=== PATIENT | male | born 1985 | race Caucasian/White ===

== ENCOUNTER 2017-02-25 09:17 | Observation (INO) | payer OTHER ==
[~2017-02-25] VITALS: Ht 198.1 cm; Wt 115.0 kg
[~2017-02-25 09:17] MED LIST: NEOSTIGMINE 3 MG/3 ML SYR IV ONE; PROPOFOL 200 MG/20 ML AMP IV ONE
[2017-02-25 09:25] VITALS: TEMP 100.2; TEMP 98.2
--- NOTE | 2017-02-25 09:26 | PD ---
HPI . mid/right upper abdominal pain since 4 am Chief Complaint: Abdominal Pain Time Seen by Provider: 09:26 Travel History International Travel<30 days: No Contact w/Intl Traveler<30days: No Traveled to known affect area: No History of Present Illness HPI 31-year-old male with history of anxiety and hepatitis B here with complaints of mid to right upper abdominal pain since 4 AM. Patient says the pain onset out of nowhere. He does admit to some nausea and vomiting, but tells me that he gets these same symptoms when he gets anxious. He did have a court hearing this morning for some misdemeanor, which he is now having to serve probation for. He does report having hepatitis B. He denies any IV drug use, but admits to marijuana usage a few weeks ago. He did have some fast food yesterday along with 2 beers. He reports having about 5 episodes of vomiting since 4 am this morning. The pain is rated as 9/10 and located in the right upper and mid abdomen. He tells me that it's intense pain. He denies any bowel or bladder issues. He was brought in by [facility] and given IV fluids and Zofran. Last ate some donuts at 430 am prior to that last ate a meal yesterday evening. PFSH Past Medical History Bipolar Disorder: Yes Schizophrenia: Yes Social History Alcohol Use: Yes Tobacco Use: Yes Substance Use: Yes Allergies-Medications (Allergen,Severity, Reaction): Coded Allergies: No Known Allergies (Unverified , 02/25/17) Review of Systems General / Constitutional: No: Fever Eyes: No: Visual changes HENT: No: Headaches Cardiovascular: No: Chest Pain or Discomfort Respiratory: No: Shortness of Breath Gastrointestinal: Positive: Nausea, Vomiting, Abdominal Pain Genitourinary: No: Dysuria Musculoskeletal: No: Pain Skin: No Rash Neurologic: No: Weakness Psychiatric: No: Depression Endocrine: No: Polydipsia Hematologic/Lymphatic: No: Easy Bruising Physical Exam Narrative GENERAL: AAO x 3, mild distress, very anxious Well-nourished, well-developed patient. SKIN: Warm and dry. No visible rashes or bruising. multiple tattoos on abdomen too numerous to count, HEAD: Normocephalic and atraumatic. EYES: No scleral icterus. No injection or drainage. EOM intact, PERRLA, ENT: No nasal drainage noted. Mucous membranes pink. Airway patent. moist mucous membranes NECK: Supple, trachea midline. No JVD. CARDIOVASCULAR: Regular rate and rhythm without murmurs, gallops, or rubs. RESPIRATORY: Breath sounds equal bilaterally. No accessory muscle use. No rhonchi or rales. GASTROINTESTINAL: Abdomen soft, tenderness to RUQ and mid abdomen. + weiner's sign, and McBurney point tenderness + EXTREMITIES: No cyanosis or edema. BACK: No obvious deformity. No CVA tenderness. NEURO: CN II-12 intact, PSYCH: AAO x 3, very anxious Data Data Last Documented VS Vital Signs Date Time Temp Pulse Resp B/P Pulse Ox O2 Delivery O2 Flow Rate FiO2 02/25/17 09:35 100.2 95 14 163/83 98 Room Air Orders Complete Blood Count With Diff (02/25/17 09:26) Comprehensive Metabolic Panel (02/25/17 09:26) Lipase (02/25/17 09:26) Ct Abd/Pel W Iv Contrast(Rout) (02/25/17 09:26) Iv Access Insert/Monitor (02/25/17 09:26) Ecg Monitoring (02/25/17 09:26) Oximetry (02/25/17 09:26) Sodium Chloride 0.9% Flush (Ns Flush) (02/25/17 09:30) Drug Screen, Random Urine (02/25/17 09:28) Urinalysis - C+S If Indicated (02/25/17 09:28) Ketorolac Inj (Toradol Inj) (02/25/17 10:00) Pantoprazole Inj (Protonix Inj) (02/25/17 10:00) Lactic Acid Sepsis Protocol (02/25/17 09:49) Blood Culture (02/25/17 09:49) Ondansetron Inj (Zofran Inj) (02/25/17 10:00) Morphine Inj (Morphine Inj) (02/25/17 10:00) C-Reactive Protein (Crp) (02/25/17 09:40) Sodium Chlor 0.9% 1000 Ml Inj (Ns 1000 M (02/25/17 10:15) Iohexol 350 Inj (Omnipaque 350 Inj) (02/25/17 11:04) Diet Npo Except Meds (02/25/17 Lunch) Prochlorperazine Inj (Compazine Inj) (02/25/17 11:30) Piperacil-Tazo 3.375 Gm Premix (Zosyn 3. (02/25/17 11:45) Sodium Chlor 0.9% 1000 Ml Inj (Ns 1000 M (02/25/17 11:45) Admit Order (Ed Use Only) (02/25/17 11:44) Labs Laboratory Tests Test 02/25/17 02/25/17 02/25/17 09:40 10:00 11:00 White Blood Count 10.7 TH/MM3 Red Blood Count 4.00 MIL/MM3 Hemoglobin 11.8 GM/DL Hematocrit 35.2 % Mean Corpuscular Volume 88.0 FL Mean Corpuscular Hemoglobin 29.6 PG Mean Corpuscular Hemoglobin 33.6 % Concent Red Cell Distribution Width 13.1 % Platelet Count 151 TH/MM3 Mean Platelet Volume 8.8 FL Neutrophils (%) (Auto) 85.5 % Lymphocytes (%) (Auto) 7.4 % Monocytes (%) (Auto) 6.9 % Eosinophils (%) (Auto) 0.0 % Basophils (%) (Auto) 0.2 % Neutrophils # (Auto) 9.1 TH/MM3 Lymphocytes # (Auto) 0.8 TH/MM3 Monocytes # (Auto) 0.7 TH/MM3 Eosinophils # (Auto) 0.0 TH/MM3 Basophils # (Auto) 0.0 TH/MM3 CBC Comment DIFF FINAL Differential Comment Sodium Level 144 MEQ/L Potassium Level 3.3 MEQ/L Chloride Level 111 MEQ/L Carbon Dioxide Level 22.6 MEQ/L Anion Gap 10 MEQ/L Blood Urea Nitrogen 11 MG/DL Creatinine 1.04 MG/DL Estimat Glomerular Filtration 84 ML/MIN Rate Random Glucose 84 MG/DL Calcium Level 7.9 MG/DL Total Bilirubin 0.7 MG/DL Aspartate Amino Transf 19 U/L (AST/SGOT) Alanine Aminotransferase 49 U/L (ALT/SGPT) Alkaline Phosphatase 103 U/L C-Reactive Protein 0.49 MG/DL Total Protein 6.6 GM/DL Albumin 3.7 GM/DL Lipase 87 U/L Lactic Acid Level 1.4 mmol/L Urine Color YELLOW Urine Turbidity CLEAR Urine pH 6.0 Urine Specific [place] 1.036 Urine Protein TRACE mg/dL Urine Glucose (UA) NEG mg/dL Urine Ketones 150 mg/dL Urine Occult Blood NEG Urine Nitrite NEG Urine Bilirubin NEG Urine Urobilinogen LESS THAN 2.0 MG/DL Urine Leukocyte Esterase NEG Urine WBC 1 /hpf Urine Squamous Epithelial <1 /hpf Cells Urine Hyaline Casts 1 /lpf Urine Mucus FEW /lpf Microscopic Urinalysis Comment CULT NOT INDICATED MDM Medical Decision Making Medical Screen Exam Complete: Yes Emergency Medical Condition: Yes Medical Record Reviewed: Yes Differential Diagnosis appendicitis, gastroenteritis, cholecystitis, pancreatitis, Narrative Course 31 yr old male here with acute abdominal pain. He appears to have possibility of appendicitis vs. cholecystitis vs. gastroenteritis vs other IV access obtained, labs and CT scan ordered. zofran and morphine given IV fluids also provided. Last Impressions Abdomen/Pelvis CT 02/25/17925 Signed Impressions: Service Date/Time: Tuesday, February 25, 2017 10:41 - CONCLUSION: 1. The findings are diagnostic of acute appendicitis. 2. Nonacute findings include mild splenomegaly and small hiatal hernia. Kyaw Cobb MD Laboratory Tests Test 02/25/17 02/25/17 09:40 11:00 Red Blood Count 4.00 MIL/MM3 Hemoglobin 11.8 GM/DL Hematocrit 35.2 % Neutrophils (%) (Auto) 85.5 % Lymphocytes (%) (Auto) 7.4 % Neutrophils # (Auto) 9.1 TH/MM3 Lymphocytes # (Auto) 0.8 TH/MM3 Potassium Level 3.3 MEQ/L Chloride Level 111 MEQ/L Estimat Glomerular Filtration 84 ML/MIN Rate Calcium Level 7.9 MG/DL C-Reactive Protein 0.49 MG/DL Urine Specific [place] 1.036 Urine Ketones 150 mg/dL Urine Mucus FEW /lpf 1045: I went to check on patient and he is in CT. 1115: discussed findings with patient; he has acute appendicitis and will need surgery. 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 Lopez: discussed case, patient to get scheduled for OR; surgical consents provided along with NPO diet. 1130: compazine provided for nausea/vomiting and zosyn All workup and results discussed with my attending Dr. Whitaker. I have also discussed everything with the patient. He is aware that this is surgical. Patient was admitted under Dr. Lopez's care, who will determine his disposition. Diagnosis Primary Impression: Acute appendicitis Qualified Code: K35.80 - Acute appendicitis, unspecified acute appendicitis type Condition: Stable Mercedes Parrish Feb 25, 2017 09:26
[2017-02-25] MEDS ORDERED: SODIUM CHLORIDE 0.9% FLUSH 10 ML FLUSH IV FLUSH PRN ×2 (09:30→12:00)
[2017-02-25 09:31] VITALS: RESP 14; O2SAT 99
[2017-02-25 09:35] VITALS: BP 163/83; PULSE 95; RESP 14; TEMP 100.2; O2SAT 98
[2017-02-25 10:00] LABS: AUTOMATED NEUTROPHIL # 9.1 TH/MM3 (1.8-7.7); BASOPHIL % 0.2 % (0.0-2.0); HEMATOCRIT 35.2 % (39.0-51.0); HEMO FLAGS DIFF FINAL; LYMPH % 7.4 % (9.0-44.0); LYMPHOCYTE # 0.8 TH/MM3 (1.0-4.8); MEAN CORPUSCULAR HEMOGLOBIN 29.6 PG (27.0-34.0); MEAN CORPUSCULAR HGB CONC 33.6 % (32.0-36.0); MONO % 6.9 % (0.0-8.0); NEUT % 85.5 % (16.0-70.0); PLATELET COUNT 151 TH/MM3 (150-450); RED CELL DISTRIBUTION WIDTH 13.1 % (11.6-17.2); WHITE BLOOD COUNT 10.7 TH/MM3 (4.0-11.0)
[2017-02-25] MEDS ORDERED: ONDANSETRON HCL 4 MG/2 ML VIAL IV PUSH ONE (10:00)
[2017-02-25] MEDS ORDERED: MORPHINE SULFATE 4 MG/ML INJ IV PUSH ONE (10:00)
[2017-02-25] MEDS ORDERED: PANTOPRAZOLE SODIUM 40 MG VIAL IV PUSH ONE (10:00)
[2017-02-25] MEDS ORDERED: KETOROLAC TROMETHAMINE 30 MG/ML (IVP) VIAL IV PUSH ONE (10:00)
--- NOTE | 2017-02-25 10:12 | PD ---
Physical Exam Date Seen by Provider: Feb 25, 2017 Time Seen by Provider: 10:10 Narrative 31-year-old male came to the emergency room with history of abdominal pain that started at 4:30 AM. Patient says he tried to eat some doughnuts at that time and he vomited. He would have come earlier but he had a court date. He was brought in by EMS. He looks to be in moderate distress. He is seen by my nurse practitioner and I'm supervising her. Patient has a temperature of 100.2. I examined him and he had diminished bowel sounds with tenderness at McBurney's point. Patient drinks alcohol as per his own admission and smokes marijuana. Denies any IV drug abuse. He is currently getting blood test and CT scan. Getting IV fluid bolus and pain medication. My suspicion is really high for acute appendicitis. Awaiting for the CT scan to be done and resulted. I've asked him to stay NPO. Data Data Last Documented VS Vital Signs Date Time Temp Pulse Resp B/P Pulse Ox O2 Delivery O2 Flow Rate FiO2 02/25/17 09:35 100.2 95 14 163/83 98 Room Air Orders Complete Blood Count With Diff (02/25/17 09:26) Comprehensive Metabolic Panel (02/25/17 09:26) Lipase (02/25/17 09:26) Ct Abd/Pel W Iv Contrast(Rout) (02/25/17 09:26) Iv Access Insert/Monitor (02/25/17 09:26) Ecg Monitoring (02/25/17 09:26) Oximetry (02/25/17 09:26) Sodium Chloride 0.9% Flush (Ns Flush) (02/25/17 09:30) Drug Screen, Random Urine (02/25/17 09:28) Urinalysis - C+S If Indicated (02/25/17 09:28) Ketorolac Inj (Toradol Inj) (02/25/17 10:00) Pantoprazole Inj (Protonix Inj) (02/25/17 10:00) Lactic Acid Sepsis Protocol (02/25/17 09:49) Blood Culture (02/25/17 09:49) Ondansetron Inj (Zofran Inj) (02/25/17 10:00) Morphine Inj (Morphine Inj) (02/25/17 10:00) C-Reactive Protein (Crp) (02/25/17 09:40) Sodium Chlor 0.9% 1000 Ml Inj (Ns 1000 M (02/25/17 10:15) Iohexol 350 Inj (Omnipaque 350 Inj) (02/25/17 11:04) Prochlorperazine Inj (Compazine Inj) (02/25/17 11:30) Piperacil-Tazo 3.375 Gm Premix (Zosyn 3. (02/25/17 11:45) Sodium Chlor 0.9% 1000 Ml Inj (Ns 1000 M (02/25/17 11:45) Admit Order (Ed Use Only) (02/25/17 11:44) Labs Laboratory Tests Test 02/25/17 02/25/17 02/25/17 09:40 10:00 11:00 White Blood Count 10.7 TH/MM3 Red Blood Count 4.00 MIL/MM3 Hemoglobin 11.8 GM/DL Hematocrit 35.2 % Mean Corpuscular Volume 88.0 FL Mean Corpuscular Hemoglobin 29.6 PG Mean Corpuscular Hemoglobin 33.6 % Concent Red Cell Distribution Width 13.1 % Platelet Count 151 TH/MM3 Mean Platelet Volume 8.8 FL Neutrophils (%) (Auto) 85.5 % Lymphocytes (%) (Auto) 7.4 % Monocytes (%) (Auto) 6.9 % Eosinophils (%) (Auto) 0.0 % Basophils (%) (Auto) 0.2 % Neutrophils # (Auto) 9.1 TH/MM3 Lymphocytes # (Auto) 0.8 TH/MM3 Monocytes # (Auto) 0.7 TH/MM3 Eosinophils # (Auto) 0.0 TH/MM3 Basophils # (Auto) 0.0 TH/MM3 CBC Comment DIFF FINAL Differential Comment Sodium Level 144 MEQ/L Potassium Level 3.3 MEQ/L Chloride Level 111 MEQ/L Carbon Dioxide Level 22.6 MEQ/L Anion Gap 10 MEQ/L Blood Urea Nitrogen 11 MG/DL Creatinine 1.04 MG/DL Estimat Glomerular Filtration 84 ML/MIN Rate Random Glucose 84 MG/DL Calcium Level 7.9 MG/DL Total Bilirubin 0.7 MG/DL Aspartate Amino Transf 19 U/L (AST/SGOT) Alanine Aminotransferase 49 U/L (ALT/SGPT) Alkaline Phosphatase 103 U/L C-Reactive Protein 0.49 MG/DL Total Protein 6.6 GM/DL Albumin 3.7 GM/DL Lipase 87 U/L Lactic Acid Level 1.4 mmol/L Urine Color YELLOW Urine Turbidity CLEAR Urine pH 6.0 Urine Specific [place] 1.036 Urine Protein TRACE mg/dL Urine Glucose (UA) NEG mg/dL Urine Ketones 150 mg/dL Urine Occult Blood NEG Urine Nitrite NEG Urine Bilirubin NEG Urine Urobilinogen LESS THAN 2.0 MG/DL Urine Leukocyte Esterase NEG Urine WBC 1 /hpf Urine Squamous Epithelial <1 /hpf Cells Urine Hyaline Casts 1 /lpf Urine Mucus FEW /lpf Microscopic Urinalysis Comment CULT NOT INDICATED Urine Opiates Screen NEG Urine Barbiturates Screen NEG Urine Amphetamines Screen NEG Urine Benzodiazepines Screen NEG Urine Cocaine Screen NEG Urine Cannabinoids Screen POS MDM Supervised Visit with [facility]: Yes Scripts Ondansetron (Zofran)4 Mg Tab4 Mg PO Q6HR PRN (NAUSEA OR VOMITING) #10 TAB Ref 0 Prov:Elijah Lopez MD 02/25/17 Hydrocodone-Acetaminophen ([place])5-325 mg Tab1 Tab PO Q6H PRN (PAIN) #28 TAB Ref 0 Prov:Elijah Lopez MD 02/25/17 Condition: Stable Gian Whitaker MD Feb 25, 2017 10:12
[2017-02-25] MEDS ORDERED: SODIUM CHLOR 0.9% 1000 ML INJ 1,000 ML IV ONE ×2 (10:15→11:45)
[2017-02-25 10:16] LABS: ALT (GPT) 49 U/L (12-78); ANION GAP 10 MEQ/L (5-15); AST (GOT) 19 U/L (15-37); BICARBONATE 22.6 MEQ/L (21.0-32.0); BLOOD UREA NITROGEN 11 MG/DL (7-18); CHLORIDE 111 MEQ/L (98-107); GLOMERULAR FILTRATION RATE 84 ML/MIN (>89); POTASSIUM 3.3 MEQ/L (3.5-5.1); SODIUM (NA) 144 MEQ/L (136-145)
[2017-02-25 10:18] LABS: ALKALINE PHOSPHATASE 103 U/L (45-117); TOTAL BILIRUBIN ADULT 0.7 MG/DL (0.2-1.0)
[2017-02-25] MEDS ORDERED: IOHEXOL 350 MG/ML 10 ML VIAL (for RAD DIAG) IV ONE (11:04)
[2017-02-25 11:12] LABS: BLOOD, URINE NEG (NEG); COMMENT (UR) CULT NOT INDICATED; CULTURE IF INDICATED CULT NOT INDICATED; GLUCOSE,URINE NEG (NEG); HYALINE CAST, URINE 1 /lpf (RARE); KETONE, URINE 150 mg/dL (NEG); MUCUS URINE FEW /lpf (OCC); NITRITE,URINE NEG (NEG); SQUAMOUS EPITHELIAL CELL URINE <1 /hpf (0-5); URINE COLOR YELLOW (YELLW/STRAW)
--- NOTE | 2017-02-25 11:12 | RADRPT ---
EXAM DATE/TIME: 02/25/2017 10:41 [facility] COMPARISON: No previous studies available for comparison. INDICATIONS : Diffuse abdominal pain with nausea and vomiting. IV CONTRAST: 95 cc Omnipaque 350 (iohexol) IV ORAL CONTRAST: No oral contrast ingested. RADIATION DOSE: 11.89 CTDIvol (mGy) MEDICAL HISTORY : Hepatitis B. SURGICAL HISTORY : None. ENCOUNTER: Initial ACUITY: 1 day PAIN SCALE: 5/10 LOCATION: Bilateral abdomen TECHNIQUE: Volumetric scanning of the abdomen and pelvis was performed. Using automated exposure control and ad justment of the mA and/or kV according to patient size, radiation dose was kept as low as reasonably achievable to obtain optimal diagnostic quality images. DICOM format image data is available electro nically for review and comparison. FINDINGS: There is motion artifact. LOWER LUNGS: The visualized lower lungs are clear. LIVER: Homogeneous density without lesion. There is no dilation of the biliary tree. No calcified [place] es. SPLEEN: Mildly enlarged measuring 15 cm in length. PANCREAS: Within normal limits. KIDNEYS: Normal in size and shape. There is no mass, stone or hydronephrosis. ADRENAL GLANDS: Within normal limits. VASCULAR: There is no aortic aneurysm. BOWEL/MESENTERY: Small hiatal hernia is present. Small bowel demonstrates no abnormality. The cecum is located in the midline and the appendix is dilated measuring 10 mm and there is associated surrounding mild inflamma tory change. Possible appendicolith is present. There are no definite findings to indicate rupture. ABDOMINAL WALL: Within normal limits. RETROPERITONEUM: There is no lymphadenopathy. BLADDER: No wall thickening or mass. REPRODUCTIVE: Within normal limits. INGUINAL: There is no lymphadenopathy or hernia. MUSCULOSKELETAL: Within normal limits for patient age. CONCLUSION: 1. The findings are diagnostic of acute appendicitis. 2. Nonacute findings include mild splenomegaly and small hiatal hernia. Kyaw Cobb MD on February 25, 2017 at 11:07 Board Certified Radiologist. This report was verified electronically.
[2017-02-25] MEDS ORDERED: PROCHLORPERAZINE INJ 10 MG/2 ML VIAL IV PUSH ONE (11:30)
[2017-02-25] MEDS ORDERED: PIPERACIL-TAZO 3.375 GM PREMIX 50 ML IV ONE (11:45)
[2017-02-25] MEDS ORDERED: ONDANSETRON HCL 4 MG/2 ML VIAL IV PUSH PRN (12:00)
--- NOTE | 2017-02-25 12:12 | HHI.HP ---
cc: Elijah Lopez MD [facility] Service ADMISSION NOTE FOR SURGICAL ATTENDING, DR. ELIJAH LOPEZ General Surgery Primary Care Physician No Primary Care Physician Admission Diagnosis acute appendicitis Chief Complaint: Sudden onset abdominal pain History of Present Illness This is a 31 year old male with a past medical history of hepatis B and anxiety. He had abrupt, sharp abdominal pain (05/17) starting at 0400 this morning with several episodes of vomiting. He last ate at 0430. A CT abd/pelvis was obtained which revealed acute appendicitis. He has a normal WBC. He does have a low grade fever. A General Surgery admission has been requested for evaluation Review of Systems Constitutional: COMPLAINS OF: Chills Endocrine: DENIES: Polydipsia, Polyuria, Polyphagia Eyes: DENIES: Eye inflammation Respiratory: DENIES: Cough Cardiovascular: DENIES: Chest pain, Palpitations Gastrointestinal: COMPLAINS OF: Abdominal pain, Nausea, Vomiting Genitourinary: DENIES: Dysuria Musculoskeletal: DENIES: Muscle aches Integumentary: DENIES: Abnormal pigmentation Hematologic/lymphatic: DENIES: Bruising Immunologic/allergic: DENIES: Eczema Neurologic: DENIES: Headache, Localized weakness Psychiatric: DENIES: Mood changes, Depression, Hallucinations Past Family Social History Past Medical History Hepatitis B Anxiety Past Surgical History None Reported Medications None Allergies: Coded Allergies: No Known Allergies (Unverified , 02/25/17) Active Ordered Medications Current Medications Medications (Trade) Dose Ordered Sig/Mango Route Start Time Stop Time Status Last Admin Sodium Chloride 2 ml 2 ml UNSCH PRN IV FLUSH 02/25/17 09:30 Piperacillin Sod/ Tazobactam Sod 50 ml @ 100 mls/hr ONCE ONCE IV 02/25/17 11:45 02/25/17 12:14 02/25/17 11:41 (NS 1000 ml Inj) 1,000 ml @ 999 mls/hr BOLUS ONCE IV 02/25/17 11:45 02/25/17 12:45 Family History Non contributory Social History + tobacco use --- less than half a pack a day + ETOH use---occasional; social; not daily + marijuana use; not daily Physical Exam Vital Signs Vital Signs Date Time Temp Pulse Resp B/P Pulse Ox O2 Delivery O2 Flow Rate FiO2 02/25/17 09:35 100.2 95 14 163/83 98 Room Air 02/25/17 09:31 14 99 02/25/17 09:25 100.2 Physical Exam GENERAL: 31 year old male resting in bed in mild acute distress. SKIN: Warm and dry. Many tattoos. HEAD: Atraumatic. Normocephalic. EYES: Pupils equal and round. No scleral icterus. No injection or drainage. ENT: No nasal bleeding or discharge. Mucous membranes pink and moist. NECK: Trachea midline. CARDIOVASCULAR: Regular rate and rhythm. Numerous tattoos RESPIRATORY: No accessory muscle use. Clear to auscultation. Breath sounds equal bilaterally. GASTROINTESTINAL: Abdomen soft, nondistended. Generalized tenderness in all four quadrants; greatest in RLQ. Numerous tattoos MUSCULOSKELETAL: Extremities without clubbing, cyanosis, or edema. No obvious deformities. NEUROLOGICAL: Awake and alert. No obvious cranial nerve deficits. Motor grossly within normal limits. Five out of 5 muscle strength in the arms and legs. Normal speech. PSYCHIATRIC: Appropriate mood and affect; insight and judgment normal. Slight distress secondary to abdominal pain Laboratory Laboratory Tests Test 02/25/17 02/25/17 02/25/17 09:40 10:00 11:00 White Blood Count 10.7 Red Blood Count 4.00 Hemoglobin 11.8 Hematocrit 35.2 Mean Corpuscular Volume 88.0 Mean Corpuscular Hemoglobin 29.6 Mean Corpuscular Hemoglobin 33.6 Concent Red Cell Distribution Width 13.1 Platelet Count 151 Mean Platelet Volume 8.8 Neutrophils (%) (Auto) 85.5 Lymphocytes (%) (Auto) 7.4 Monocytes (%) (Auto) 6.9 Eosinophils (%) (Auto) 0.0 Basophils (%) (Auto) 0.2 Neutrophils # (Auto) 9.1 Lymphocytes # (Auto) 0.8 Monocytes # (Auto) 0.7 Eosinophils # (Auto) 0.0 Basophils # (Auto) 0.0 CBC Comment DIFF FINAL Differential Comment Sodium Level 144 Potassium Level 3.3 Chloride Level 111 Carbon Dioxide Level 22.6 Anion Gap 10 Blood Urea Nitrogen 11 Creatinine 1.04 Estimat Glomerular Filtration 84 Rate Random Glucose 84 Calcium Level 7.9 Total Bilirubin 0.7 Aspartate Amino Transf 19 (AST/SGOT) Alanine Aminotransferase 49 (ALT/SGPT) Alkaline Phosphatase 103 C-Reactive Protein 0.49 Total Protein 6.6 Albumin 3.7 Lipase 87 Lactic Acid Level 1.4 Urine Color YELLOW Urine Turbidity CLEAR Urine pH 6.0 Urine Specific [place] 1.036 Urine Protein TRACE Urine Glucose (UA) NEG Urine Ketones 150 Urine Occult Blood NEG Urine Nitrite NEG Urine Bilirubin NEG Urine Urobilinogen LESS THAN 2.0 Urine Leukocyte Esterase NEG Urine WBC 1 Urine Squamous Epithelial <1 Cells Urine Hyaline Casts 1 Urine Mucus FEW Microscopic Urinalysis Comment CULT NOT INDICATED Date/Time Procedure Status Source Growth 02/25/17 10:00 Aerobic Blood Culture Received Blood Peripheral Pending 02/25/17 10:00 Anaerobic Blood Culture Received Blood Peripheral Pending Result Diagram: 02/25/1793902/25/17939 Imaging Last 48 hours Impressions Abdomen/Pelvis CT 02/25/17 09 Signed Impressions: Service Date/Time: Saturday, February 25, 2017 10:41 - CONCLUSION: 1. The findings are diagnostic of acute appendicitis. 2. Nonacute findings include mild splenomegaly and small hiatal hernia. Kyaw Cobb MD Assessment and Plan Problem List: (1) Acute appendicitis (2) Abnormal CT of the abdomen (3) Abdominal pain, right lower quadrant Assessment and Plan 31 year old male with acute appendicitis -Plan for laparoscopic appendectomy today -Obtain consents -NPO -Zosyn -Zofran PRN -Hold any anticoagulation -Procedure was explained and all questions answered NOTE FOR SURGICAL ATTENDING, DR. ELIJAH LOPEZ I agree with above assessment and plan. The exam, history, and the medical decision-making described in the above note were completed with the assistance of the mid-level provider. I reviewed and agree with the findings presented. I attest that I had a [id number] encounter with the patient on the same day, and personally performed and documented my assessment and findings in the medical record. Patient seen in the emergency room and the D pod Exquisite right lower quadrant discomfort Reviewed CT scan Discussed with patient plan laparoscopic appendectomy Discussed with operating theater to proceed with laparoscopic appendectomy The following services were provided during this hospital visit: Chart data review, vital sign assessments/reviewing monitor data Review of consultations notes if present. Medication orders/review and/or management Ordering and/or reviewing lab tests Ordering and/or interpreting/reviewing x-rays and/or diagnostic studies Care of the patient and discussion of the patient with the care team Documentation time To help prompt me to consider important information that might be impacting today's encounter and assessment, information from prior notes written by myself or my colleagues may have been "brought forward/copy and pasted" into today's note. Code Status Full code Discussed Condition With Dr. Lopez Mr. Underwood Problem Qualifiers (1) Acute appendicitis: Qualified Code: K35.2 - Acute appendicitis with generalized peritonitis Diane Dodd Feb 25, 2017 12:12 Elijah Lopez MD Feb 25, 2017 13:24
[2017-02-25 12:16] VITALS: BP 139/66; PULSE 107; RESP 20; RESP 22; TEMP 103.3; O2SAT 96
[2017-02-25] MEDS: SODIUM CHLOR 0.9% 1000 ML INJ 1,000 ML IV SCH ×3 (12:46→20:59)
[2017-02-25 13:16] VITALS: BP 108/52; PULSE 95; RESP 16; TEMP 102.1; O2SAT 97
[2017-02-25] MEDS ORDERED: BUPIVACAINE/EPINEPHRINE 0.5% PF 10 ML VIAL ONE (13:53)
[2017-02-25] MEDS ORDERED: MIDAZOLAM HCL 2 MG/2 ML VIAL ONE (14:18)
[2017-02-25] MEDS ORDERED: ACETAMINOPHEN 1000 MG/100 ML VIAL IV ONE (14:18)
[2017-02-25] MEDS ORDERED: ONDANSETRON HCL 4 MG/2 ML VIAL ONE (14:18)
[2017-02-25] MEDS ORDERED: fentaNYL CITRATE 250 MCG/5 ML AMP ONE ×2 (14:18→16:03)
[2017-02-25] MEDS ORDERED: FAMOTIDINE 20 MG/2 ML VIAL ONE (14:19)
[2017-02-25 14:45] LABS: AMPHETAMINE, URINE NEG (NEG); BARBITURATES, URINE NEG (NEG); COCAINE, URINE NEG (NEG)
[2017-02-25] MEDS ORDERED: BUPIVACAINE/EPINEPHRINE 0.5% PF 10 ML VIAL INFIL ONE (14:59)
[2017-02-25] MEDS ORDERED: NORC5TAB PO (15:44)
[2017-02-25] MEDS ORDERED: ZOFR4TAB PO (15:45)
[2017-02-25] MEDS ORDERED: DO NOT ADM ANY ANTICOAGULANT DRUGS PRN (16:05)
[2017-02-25] MEDS ORDERED: LACTATED RINGER'S 1000 ML INJ 500 ML IV ONE (18:00)
[2017-02-25 20:00] VITALS: BP 101/57; PULSE 70; RESP 19; TEMP 96.3; O2SAT 96
[2017-02-25] MEDS: ACETAMINOPHEN INJ 100 ML IV SCH (20:59)
[2017-02-25] MEDS: SODIUM CHLORIDE 0.9% FLUSH 10 ML FLUSH IV FLUSH SCH (21:00)
[2017-02-25] MEDS: ACETAMINOPHEN/HYDROcodone 325 MG/5 MG TAB PO PRN (21:44)
[2017-02-26] VITALS (7 sets, daily range): BP systolic 105–122; BP diastolic 54–67; PULSE 73–81; RESP 18–22; TEMP 95.7–97.4; O2SAT 91–97
[2017-02-26] MEDS: ACETAMINOPHEN INJ 100 ML IV SCH ×3 (04:41→14:00)
[2017-02-26] MEDS: ACETAMINOPHEN/HYDROcodone 325 MG/5 MG TAB PO PRN ×5 (04:48→23:49)
[2017-02-26] MEDS: PANTOPRAZOLE SODIUM 40 MG VIAL IV SCH (09:03)
[2017-02-26] MEDS: SODIUM CHLORIDE 0.9% FLUSH 10 ML FLUSH IV FLUSH SCH ×3 (09:04→23:46)
--- NOTE | 2017-02-26 17:42 | HHI.PR ---
Subjective Subjective Notes Still painful; pain comes in waves. Ate all of breakfast because he was starving. Objective Vitals/I&O Vital Signs Date Time Temp Pulse Resp B/P Pulse Ox O2 Delivery O2 Flow Rate FiO2 02/26/17 16:00 97.2 78 18 122/64 93 02/26/17 09:26 21 02/25/17 18:30 Room Air 02/25/17 16:05 10 Labs Date/Time Procedure Status Source Growth 02/25/17 10:00 Aerobic Blood Culture - Final Resulted Blood Peripheral QNS - SEE ANAEROBE REPORT 02/25/17 10:00 Anaerobic Blood Culture - Preliminary Resulted Blood Peripheral NO GROWTH IN 1 DAY 02/25/17 09:45 Aerobic Blood Culture - Preliminary Resulted Blood Peripheral NO GROWTH IN 1 DAY 02/25/17 09:45 Anaerobic Blood Culture - Preliminary Resulted Blood Peripheral NO GROWTH IN 1 DAY Radiology Last 48 hours Impressions Abdomen/Pelvis CT 02/25/17 0926 Signed Impressions: Service Date/Time: Saturday, February 25, 2017 10:41 - CONCLUSION: 1. The findings are diagnostic of acute appendicitis. 2. Nonacute findings include mild splenomegaly and small hiatal hernia. Kyaw Cobb MD Lungs: Clear Abdomen: Non-distended, Post-op tenderness Narrative Exam steristrips dry and intact; no erythema A/P Problem List: (1) Acute appendicitis (2) Abnormal CT of the abdomen (3) Abdominal pain, right lower quadrant Assessment and Plan POD #1 lap appendectomy for acute appendicitis without perforation Not ready for discharge due to pain Likely discharge next 24-48 hrs as pain subsides Problem Qualifiers (1) Acute appendicitis: Qualified Code: K35.2 - Acute appendicitis with generalized peritonitis Jere Oquendo MD Feb 26, 2017 17:42
[2017-02-27] VITALS: BP 114/70; PULSE 98; RESP 19; TEMP 96.3; O2SAT 95
[2017-02-27] MEDS: PANTOPRAZOLE SODIUM 40 MG VIAL IV SCH (07:45)
[2017-02-27] MEDS: SODIUM CHLORIDE 0.9% FLUSH 10 ML FLUSH IV FLUSH SCH ×2 (07:46→21:00)
[2017-02-27] MEDS: ACETAMINOPHEN/HYDROcodone 325 MG/5 MG TAB PO PRN ×3 (07:46→21:21)
[2017-02-27 08:00] VITALS: BP 123/73; PULSE 74; RESP 16; TEMP 97.2; O2SAT 94
[2017-02-27 12:00] VITALS: BP 121/75; PULSE 78; RESP 16; TEMP 96.9; O2SAT 97
--- NOTE | 2017-02-27 14:00 | HHI.PR ---
Subjective Subjective Notes DAILY PROGRESS NOTE FOR SURGICAL ATTENDING, DR. SHANNON LOPEZ Recovering from laparoscopic appendectomy Objective Vitals/I&O Vital Signs Date Time Temp Pulse Resp B/P Pulse Ox O2 Delivery O2 Flow Rate FiO2 02/27/17 13:31 21 02/27/17 12:00 96.9 78 16 121/75 97 02/25/17 18:30 Room Air 02/25/17 16:05 10 Labs Date/Time Procedure Status Source Growth 02/25/17 10:00 Aerobic Blood Culture - Preliminary Resulted Blood Peripheral 02/25/17 10:00 Anaerobic Blood Culture - Preliminary Resulted Blood Peripheral NO GROWTH IN 2 DAYS Radiology Last 48 hours Impressions Abdomen/Pelvis CT 02/25/17 0945 Signed Impressions: Service Date/Time: Saturday, February 25, 2017 10:41 - CONCLUSION: 1. The findings are diagnostic of acute appendicitis. 2. Nonacute findings include mild splenomegaly and small hiatal hernia. Kyaw Cobb MD Cardiovascular: Regular Abdomen: Non-distended, Post-op tenderness A/P Problem List: (1) Blood bacterial culture positive Plan: We'll start by mouth antibiotics (2) Acute appendicitis (3) Abnormal CT of the abdomen (4) Abdominal pain, right lower quadrant (5) S/P laparoscopic appendectomy Assessment and Plan 31-year-old gentleman status post Appendectomy he has gram-positive cultures. Lost IV access We'll start him on by mouth antibiotics anticipate discharge by tomorrow Attending Statement NOTE FOR SURGICAL ATTENDING, DR. SHANNON LOPEZ I I attest that I had a [id number] encounter with the patient on the same day, and personally performed and documented my assessment and findings in the medical record. The following services were provided during this hospital visit: Chart data review, vital sign assessments/reviewing monitor data Review of consultations notes if present. Medication orders/review and/or management Ordering and/or reviewing lab tests Ordering and/or interpreting/reviewing x-rays and/or diagnostic studies Care of the patient and discussion of the patient with the care team Documentation time To help prompt me to consider important information that might be impacting today's encounter and assessment, information from prior notes written by myself or my colleagues may have been "brought forward/copy and pasted" into today's note. Problem Qualifiers (1) Acute appendicitis: Qualified Code: K35.2 - Acute appendicitis with generalized peritonitis Shannon Lopez MD Feb 27, 2017 14:00
--- NOTE | 2017-02-27 14:02 | HHI.PR ---
Subjective Subjective Notes DAILY PROGRESS NOTE FOR SURGICAL ATTENDING, DR. SHANNON LOPEZ Doing well Appears by mouth pain medication working Objective Vitals/I&O Vital Signs Date Time Temp Pulse Resp B/P Pulse Ox O2 Delivery O2 Flow Rate FiO2 02/27/17 13:31 21 02/27/17 12:00 96.9 78 16 121/75 97 02/25/17 18:30 Room Air 02/25/17 16:05 10 Labs Date/Time Procedure Status Source Growth 02/25/17 10:00 Aerobic Blood Culture - Preliminary Resulted Blood Peripheral 02/25/17 10:00 Anaerobic Blood Culture - Preliminary Resulted Blood Peripheral NO GROWTH IN 2 DAYS Radiology Last 48 hours Impressions Abdomen/Pelvis CT 02/25/17 0916 Signed Impressions: Service Date/Time: Saturday, February 25, 2017 10:41 - CONCLUSION: 1. The findings are diagnostic of acute appendicitis. 2. Nonacute findings include mild splenomegaly and small hiatal hernia. Kyaw Cobb MD Cardiovascular: Regular Abdomen: Non-distended, Post-op tenderness A/P Problem List: (1) Blood bacterial culture positive (2) Acute appendicitis (3) Abnormal CT of the abdomen (4) Abdominal pain, right lower quadrant (5) S/P laparoscopic appendectomy Assessment and Plan 31-year-old gentleman status post Appendectomy he has gram-positive cultures. Lost IV access We'll start him on by mouth antibiotics anticipate discharge by tomorrow Attending Statement NOTE FOR SURGICAL ATTENDING, DR. SHANNON LOPEZ I attest that I had a [id number] encounter with the patient on the same day, and personally performed and documented my assessment and findings in the medical record. The following services were provided during this hospital visit: Chart data review, vital sign assessments/reviewing monitor data Review of consultations notes if present. Medication orders/review and/or management Ordering and/or reviewing lab tests Ordering and/or interpreting/reviewing x-rays and/or diagnostic studies Care of the patient and discussion of the patient with the care team Documentation time To help prompt me to consider important information that might be impacting today's encounter and assessment, information from prior notes written by myself or my colleagues may have been "brought forward/copy and pasted" into today's note. Problem Qualifiers (1) Acute appendicitis: Qualified Code: K35.2 - Acute appendicitis with generalized peritonitis Shannon Lopez MD Feb 27, 2017 14:02
[2017-02-27 16:00] VITALS: BP 131/65; PULSE 79; RESP 17; TEMP 97.5; O2SAT 98
[2017-02-27 20:00] VITALS: BP 118/68; PULSE 62; RESP 18; TEMP 98.1; O2SAT 95
[2017-02-27] MEDS: CIPROFLOXACIN 500 MG TAB PO SCH (21:21)
--- NOTE | 2017-02-27 22:34 | MP ---
cc: SHANNON LOPEZ M.D. DATE OF SURGERY 02/25/2017 PREOPERATIVE DIAGNOSIS Appendicitis. POSTOPERATIVE DIAGNOSIS Appendicitis. PROCEDURE Laparoscopic appendectomy. ANESTHESIA General SURGEON Dr. Lopez. INDICATION This is a pleasant 31-year-old gentleman who came to the emergency room, had classic signs and symptomatology consistent with appendicitis confirmed with radiologic imaging. PROCEDURE DELIRIUM TREMENS The patient taken to the operating room and placed in the supine position. After anesthesia his abdomen was prepped with Betadine solution. We make an incision just above the umbilicus. Veress needle inserted, saline load test was performed. The abdomen is insufflated with 15 mmHg. Camera was introduced. Two other working ports placed in the midline. The appendix can be seen, it is obviously inflamed. We are able to take it down with a combination of blunt dissection, hydrodissection and using the harmonic scalpel. We were able to place two Endo ties around the base of the appendix, it is obviously inflamed. Once we get the two PDS Endo ties around the base of the appendix, the appendix is amputated, placed in EndoCatch and pulled out through the umbilical incision and passed off the field. We then irrigate copiously. The liver is smooth. The peritoneal surfaces are smooth. No other gross abnormalities seen. We drape the omentum down low in the pelvis. The CO2 and irrigating solution is removed. The trocars were then removed. The fascial defect is closed with 0 Vicryl at the umbilicus and skin is closed with 4-0 Vicryl. Steri-Strips applied. Sterile bandage applied. The patient tolerated the procedure well with no immediate postop complications. Shannon Lopez MD JDB/KK /3:56 PM /10:34 PM
[2017-02-28] VITALS: BP 113/57; PULSE 52; RESP 18; TEMP 96.3; O2SAT 96
[2017-02-28 02:59] VITALS: O2SAT 96
[2017-02-28 08:00] VITALS: BP 106/67; PULSE 60; RESP 20; TEMP 96.9; O2SAT 98
[2017-02-28] MEDS: SODIUM CHLORIDE 0.9% FLUSH 10 ML FLUSH IV FLUSH SCH (09:00)
[2017-02-28] MEDS: CIPROFLOXACIN 500 MG TAB PO SCH (09:58)
--- NOTE | 2017-02-28 15:45 | HHI.DS ---
Discharge Summary Admission Date Feb 25, 2017 at 11:45 Discharge Date: Feb 28, 2017 Admitting Diagnosis acute appendicitis (1) Blood bacterial culture positive (2) Acute appendicitis (3) Abnormal CT of the abdomen (4) Abdominal pain, right lower quadrant (5) S/P laparoscopic appendectomy Brief History This is a 31 year old male POD3 lap appy. CBC/BMP: 02/25/17 0940 02/25/17 0940 PE at Discharge Alert and awake Cardio: RRR Resp: CTAB Abd: steristrips dry and intact; no erythema; abdomen soft Hospital Course This is a 31 year old male POD3 laparoscopic appendectomy. The patient was able to tolerate regular diet. The patient's pain was controlled using oral pain medications. The patient was given postoperative incision instructions. The patient will follow-up with Dr. Lopez as indicated on the discharge information. Pt Condition on Discharge: Good Discharge Disposition: Discharge Home Discharge Instructions DIET: Follow Instructions for: As Tolerated, No Restrictions Activities you can perform: See Additionl Instruction Other Activity Instructions: Okay to shower; pat incisions dry No beach, pools or bath tubes until you see us in the office Diane Dodd Feb 28, 2017 15:45
== END 2017-02-28 12:04 | disposition home or self-care (01) ==
LOC: NEPD 09:17 → NEDA 11:45 → NEPFCDU 12:58 → N07B 16:15
PROVIDERS: ADMIT Surgery; ATTEND Surgery
DX: K35.80 Unspecified acute appendicitis (principal); R16.1 Splenomegaly, not elsewhere classified; K44.9 Diaphragmatic hernia without obstruction or gangrene; B19.10 Unspecified viral hepatitis B without hepatic coma; F31.9 Bipolar disorder, unspecified; F20.9 Schizophrenia, unspecified; F41.9 Anxiety disorder, unspecified; F17.200 Nicotine dependence, unspecified, uncomplicated; F12.90 Cannabis use, unspecified, uncomplicated
CPT/HCPCS: 00840; 44970; 74177; 80053; 80307; 81001; 83605; 83690; 85025; 86140; 87040; 87149; 87205; 88304; 96361; 96374; 96375; 99285; C9113; G0378; J0131; J0780; J2250; J2270; J2405; J2543; J2710; J3010; J7030; J7120; Q9967

== ENCOUNTER 2017-12-15 19:19 | Emergency (ER) | payer SELFPAY ==
[~2017-12-15] VITALS: Ht 198.1 cm; Wt 90.0 kg
[~2017-12-15 19:19] MED LIST changes: -NEOSTIGMINE 3 MG/3 ML SYR IV ONE; +NORC5TAB PO; -PROPOFOL 200 MG/20 ML AMP IV ONE; +ZOFR4TAB PO
[2017-12-15 19:40] VITALS: BP 143/66; PULSE 80; RESP 20; TEMP 97.5; O2SAT 100
== END 2017-12-15 21:00 | disposition left against medical advice (07) ==
LOC: NED 19:19
DX: Z00.00 Encounter for general adult medical examination without abnormal findings (principal); Z53.21 Procedure and treatment not carried out due to patient leaving prior to being seen by health care provider
CPT/HCPCS: 99281